=== PATIENT | female | born 1970 ===

== ENCOUNTER → 2016-11-08 | Outpatient (REF) | payer OTHER, SELFPAY ==
[2016-11-08 17:33] LABS: PERCENT SATURATION 18.1 % (13.2-37.4)
== END ==
LOC: M LAB REF 16:35
PROVIDERS: ATTEND Nurse Practitioner Family
DX: R74.8 Abnormal levels of other serum enzymes (principal)

== ENCOUNTER → 2018-10-09 | Outpatient (REF) | payer BC ==
[2018-10-09 18:21] LABS: PERCENT SATURATION 21.9 % (13.2-45.0)
== END ==
LOC: M LAB REF 16:59
PROVIDERS: ATTEND Nurse Practitioner Adult Health
DX: R79.0 Abnormal level of blood mineral (principal)

== ENCOUNTER → 2021-11-14 | Outpatient (REF) | payer OTHER ==
[2021-11-15 14:17] LABS: FERRITIN 246 NG/ML (8-252); IRON (FE) 121 UG/DL (50-170)
== END ==
LOC: M LAB REF 12:22
PROVIDERS: ATTEND Nurse Practitioner Adult Health
DX: R79.0 Abnormal level of blood mineral (principal)

== ENCOUNTER → 2023-05-28 | Outpatient (CLI) | payer OTHER | LOC: M WUC 15:34 | PROVIDERS: ATTEND Nurse Practitioner Family | DX: S63.432A Traumatic rupture of volar plate of right middle finger at metacarpophalangeal and interphalangeal joint, initial encounter (principal) ==

== ENCOUNTER → 2024-04-07 | Outpatient (REF) | payer OTHER ==
[2024-04-07 19:16] LABS: FERRITIN 113.5 NG/ML (7.3-270.7)
[2024-04-07 19:17] LABS: PERCENT SATURATION 34.8 % (13.2-45.0)
== END ==
LOC: M LAB REF 16:37
PROVIDERS: ATTEND Internal Medicine
DX: D64.9 Anemia, unspecified (principal)